=== PATIENT | male | born 1945 | race Caucasian/White ===

== ENCOUNTER 2019-12-05 12:42 | Outpatient (CLI) | payer OTHER | END 2019-12-05 23:59 | disposition home or self-care (01) | LOC: CARD DIAG 12:42 | PROVIDERS: ATTEND Orthopaedic Surgery | DX: I08.1 Rheumatic disorders of both mitral and tricuspid valves (principal); I25.9 Chronic ischemic heart disease, unspecified | CPT/HCPCS: 93306 ==

== ENCOUNTER 2022-11-09 12:12 | Day surgery (SDC) | payer MEDICARE, BC ==
[2022-11-04 16:04] LABS: BASOPHILS % (AUTO) 0.6 % (0-1); EOSINOPHILS # (AUTO) 0.1 X10'3 (0-0.9); EOSINOPHILS % (AUTO) 1.3 % (0-6); HEMATOCRIT 48.8 % (42.0-52.0); HEMOGLOBIN 16.5 g/dl (14.0-17.9); LYMPHOCYTES % (AUTO) 13.6 % (21-51); MEAN CORPUSCULAR HEMOGLOBIN 32.9 PG (27.0-31.0); MEAN CORPUSCULAR HGB CONC 33.8 g/dL (33.0-36.5); MEAN CORPUSCULAR VOLUME 97.4 FL (78-98); MEAN PLATELET VOLUME 8.5 FL (7.4-10.4); MONOCYTES # (AUTO) 0.9 X10'3 (0-0.9); NEUTROPHILS # (AUTO) 5.4 X10'3 (1.8-7.7); NEUTROPHILS % (AUTO) 72.5 % (42-75); PLATELET COUNT 148 X10'3 (140-440); RED BLOOD COUNT 5.01 X10'6 (4.70-6.10); RED CELL DISTRIBUTION WIDTH 16.1 % (11.5-14.5); WHITE BLOOD COUNT 7.5 X10'3 (4.5-11.0)
[2022-11-04 16:20] LABS: APTT 50 SECONDS (22-32)
[2022-11-04 16:22] LABS: ALBUMIN 3.6 G/DL (3.4-5.0); ANION GAP 9 (8-16); BLOOD UREA NITROGEN 25 MG/DL (7-18); BUN/CREATININE RATIO 18.7 (5.4-32.0); CALCIUM 8.7 MG/DL (8.5-10.1); CHLORIDE 100 MMOL/L (99-107); CREATININE 1.34 MG/DL (0.60-1.10); POTASSIUM 4.5 MMOL/L (3.5-5.1); SODIUM 135 MMOL/L (135-145); TOTAL CARBON DIOXIDE 25.6 MMOL/L (24-32); eGFR 52 ML/MIN
[2022-11-04 16:39] LABS: GLUCOSE 100 MG/DL (70-104)
[~2022-11-09] VITALS: Ht 180.3 cm; Wt 136.8 kg
[2022-11-09] VITALS (9 sets, daily range): BP systolic 112–139; BP diastolic 62–82
[2022-11-09] MEDS ORDERED: SACU1TAB7 PO (12:35)
[2022-11-09] MEDS ORDERED: DAPA10TA PO (12:35)
[2022-11-09] MEDS ORDERED: DABI150C PO (12:35)
[2022-11-09] MEDS ORDERED: UBID30CA11 PO (12:35)
[2022-11-09] MEDS ORDERED: SPIR25TA5 PO (12:35)
[2022-11-09] MEDS ORDERED: ATOR40TA PO (12:35)
[2022-11-09] MEDS ORDERED: CARV-50 PO (12:35)
[2022-11-09] MEDS ORDERED: AMIO200T61 PO (12:35)
[2022-11-09] MEDS ORDERED: MULT-1085 PO (12:35)
[2022-11-09] MEDS ORDERED: normal saline 1000ml 1,000 ML IV SCH (12:50)
[2022-11-09] MEDS ORDERED: MIDAZolam 1mg/ml 10ml vial IV ONE (12:50)
[2022-11-09] MEDS ORDERED: fentaNYL/PF 50MCG/1 ML 2ML syringe IV ONE (12:50)
== END 2022-11-09 15:20 | disposition home or self-care (01) ==
LOC: SSTAY O 12:12
PROVIDERS: ATTEND Student in an Organized Health Care Education/Training Program
DX: I48.91 Unspecified atrial fibrillation (principal); G47.33 Obstructive sleep apnea (adult) (pediatric); I11.0 Hypertensive heart disease with heart failure; I50.9 Heart failure, unspecified; I73.9 Peripheral vascular disease, unspecified; F12.90 Cannabis use, unspecified, uncomplicated; Z87.891 Personal history of nicotine dependence; Z79.899 Other long term (current) drug therapy
CPT/HCPCS: 36415; 80048; 85025; 85610; 85730; 92960; 93005; J2250; J3010; J7030; A4620